=== PATIENT | female | born 1960 | race Caucasian/White ===

== ENCOUNTER 2018-10-03 11:45 | Outpatient (CLI) | payer OTHER ==
--- NOTE | 2018-10-03 12:11 | RAD ---
Cervical spine 5 views: 10/03/2018 COMPARISON: None HISTORY: Cervical radiculopathy, right upper extremity radiculopathy with right arm numbness FINDINGS: Mild disc space narrowing and anterior osteophyte formation at C4-5 and C5-6. No prevertebr al soft tissue swelling. No anterolisthesis or retrolisthesis is noted. Significant bilateral mid cervical spine facet and uncovertebral osteophyte formation noted, most pro minent on the left at C3-4 and C4-5, and on the right at C4-5 and C5-6. Open-mouth odontoid view demonstrates a normal-appearing dens and C1-2 articulation. IMPRESSION: Multilevel degenerative change. Given radicular symptoms, MRI suggested.
== END 2018-10-03 11:46 | disposition home or self-care (01) ==
LOC: BICRAD 11:45
PROVIDERS: ATTEND Chiropractor
DX: M47.22 Other spondylosis with radiculopathy, cervical region (principal)
CPT/HCPCS: 72050